=== PATIENT | male | born 1980 | race Hispanic/Latino ===

== ENCOUNTER 2016-04-18 12:37 | Emergency (ER) | payer OTHER ==
[~2016-04-18] VITALS: Ht 185.4 cm; Wt 120.2 kg
--- NOTE | 2016-04-18 14:31 | ED UPPER/LOWER EXTREMITY COMPL ---
History of Present Illness General Chief Complaint: Plantar Puncture Wound Stated Complaint: LEFT FOOT PAIN Source: patient Exam Limitations: no limitations Vital Signs & Intake/Output Vital Signs & Intake/Output Vital Signs Date Time Temp Pulse Resp B/P Pulse O2 O2 Flow FiO2 Ox Delivery Rate 04/18 1637 85 18 130/82 95 Room Air 04/18 1446 96 04/18 1445 98.3 97 18 141/83 96 Room Air 04/18 1248 97.8 94 18 129/78 97 Room Air Allergies Coded Allergies: NO KNOWN ALLERGIES (08/01/11) Triage Note: RECEIVED 35 YO MALE C/O RIGHT FOOT PAIN (TOP OF ANKLE) X ONE DAY AND INTERMITTENT LEFT UPPER CHEST PAIN X ONE DAY. PT HAD UMBILLICAL HERNIA REPAIR SURGURY LAST TUESDAY. PT HAS HX OF GOUT. PT DENIES INJURY/TRAUMA TO FOOT. PAIN WORSENING. Triage Nurses Notes Reviewed? yes Onset: Gradual Duration: constant Timing: recent history Severity: moderate Severity Numbers: 5 HPI: Patient is a 35-year-old male who presents emergency room with a one-day history of gradual onset of left-sided top of the foot pain and swelling. Patient is 11 days status post umbilical hernia repair performed at [facility]. Patient denies any mechanism of injury however states that ambulation makes worse. Denies any chest pain, hemoptysis cough arm pain and jaw pain abdominal pain or calf pain. Denies any paresthesia or numbness of the foot. Denies any discoloration of skin redness or warmth. Past History Travel History Traveled to [place] past 21 day No Medical History Any Pertinent Medical History? 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 No Review of Systems Review of Systems Constitutional: Reports: no symptoms. EENTM: Reports: no symptoms. Respiratory: Reports: no symptoms. Cardiovascular: Reports: no symptoms. Gastrointestinal/Abdominal: Reports: no symptoms. Genitourinary: Reports: no symptoms. Musculoskeletal: Reports: see HPI. Skin: Reports: no symptoms. Neurological/Psychological: Reports: no symptoms. Hematologic/Endocrine: Reports: no symptoms. Immunological: Reports: no symptoms. All Other Systems: Reviewed and Negative Physical Exam Physical Exam General Appearance: no apparent distress, alert, comfortable Hip Left: normal range of motion, normal inspection Hip Right: normal range of motion, normal inspection Knee Left: normal range of motion, normal inspection Knee Right: normal range of motion, normal inspection Foot Left: bone tenderness Foot Right: normal inspection, normal range of motion Neurologic/Tendon: normal sensation, normal motor functions, normal tendon functions, responds to pain, no evidence tendon injury, no pulse deficit Skin: intact, normal color, warm/dry Comments: Well-developed well-nourished no apparent distress. HEENT: Atraumatic, extraocular motion intact Neck: Supple, no lymphadenopathy Back: Nontender Respiratory: No respiratory distress Neuro: Alert and oriented x3 Psych: Mood affect normal, normal memory normal judgment. Diagram Feet Top 1) Localized swelling noted with moderate point tenderness, no erythema no warmth no redness Sensation intact Capillary refill intact pedal pulse +2 Progress Differential Diagnosis: arterial insufficiency, compartment syndrome, contusion, dislocation, DVT, fracture, gout, septic arthritis, sprain, tendon injury Plan of Care: Orders Procedure Date/time Status EKG 04/18 1251 Active Patient denies any mechanism of injury and due to results of x-rays I discussed patient and x-ray results with water pollution control inspector Dr. Leos who advised patient to be nonweightbearing and to have conservative treatment of ice and ibuprofen and to follow up in office next week. Patient was offered crutches and instructed on nonweightbearing status patient was offered ibuprofen in the emergency room and declined No concern at this time of DVT or infectious process. Patient was given copies of x-ray Upon discharge patient looks well no apparent distress and will comply discharge instructions and had no questions Due to the radiology x-ray dictation of MARAL'S infarct patient was reexamined and had minimal tenderness to the second metatarsal head Patient's most tenderness was to the mid aspect of patient's tarsals as dictated in diagram (DONNA FOURNIER) Diagnostic Imaging: Viewed by Me: Radiology Read. Radiology Impression: no fracture Comments: PATIENT: RICKEY HASTINGS PRESENT AGE: 35 PATIENT ACCOUNT NO: [id number] : 79 LOCATION: [facility] ORDERING PHYSICIAN: DONNA CONNER SERVICE DATE: 04/18/16 EXAM TYPE: RAD - XRY-FOOT COMPLETE, LEFT EXAMINATION: XR FOOT, LEFT CLINICAL INFORMATION: Dorsal foot pain and swelling. COMPARISON: None TECHNIQUE: AP, lateral, and oblique views of the left foot. FINDINGS: No fracture or dislocation. Bone mineralization is within normal limits. Slight hypertrophic changes at the first MTP joint. No periosteal reaction along the diaphyses of the metatarsals. On the oblique projection, there is equivocal flattening and subcortical sclerosis at the second metatarsal head. No radiodense foreign body. IMPRESSION: 1. No acute fracture. 2. On a single projection, there is equivocal flattening and subcortical sclerosis at the second metatarsal head. This could represent a normal variant or possibly very early changes of Freiberg's infraction the correct clinical setting. Consider radiographic or MR follow-up as clinically appropriate. PATIENT: RICKEY HASTINGS PRESENT AGE: 35 PATIENT ACCOUNT NO: [id number] : 79 LOCATION: [facility] ORDERING PHYSICIAN: DONNA CONNER SERVICE DATE: 04/18/16 EXAM TYPE: US - US-UNILATERAL VENOUS DOPPLER EXAMINATION: US TRIPLEX LOWER EXTREMITY, LEFT CLINICAL INFORMATION: Left foot pain and swelling. Evaluate for deep vein thrombosis. COMPARISON: None. TECHNIQUE: Color-flow triplex imaging with spectral analysis and compression Doppler were performed on the left lower extremity. FINDINGS: The left common femoral vein is compressible and exhibits a normal phasic waveform; this suggests that the iliac veins are widely patent above. Within the proximal thigh, the visualized profunda femoris vein is patent and the examined greater saphenous vein and saphenofemoral junction are normal. Superficial femoral vein is patent in the proximal, mid and distal thigh. Popliteal vein appears normal to the level of the trifurcation, and the visualized calf veins are normal. Incidentally noted is a small 1.3 x 0.6 x 1.3 cm popliteal cyst. IMPRESSION: No evidence of deep vein thrombosis in the left lower extremity. Departure Departure Disposition: HOME OR SELF CARE Condition: Stable Clinical Impression Primary Impression: Right foot pain Referrals: SHELBY BROWN MD (PCP/Family) CRISSY LEOS DPM Additional Instructions: As discussed begin using crutches until YOU can walk without pain. Begin icing the area directly for pain and inflammation 20 minutes on 2 hours off. Begin elevating THE FOOT for swelling. Begin using the Gregor wrap for swelling. Tomorrow please call water pollution control inspector Dr. Leos to make an appointment to be seen for further evaluation treatment. If symptoms worsen return to emergency room Departure Forms: Customer Survey General Discharge Information
--- NOTE | 2016-04-18 15:24 | RADIOLOGY REPORT ---
EXAMINATION: XR FOOT, LEFT CLINICAL INFORMATION: Dorsal foot pain and swelling. COMPARISON: None TECHNIQUE: AP, lateral, and oblique views of the left foot. FINDINGS: No fracture or dislocation. Bone mineralization is within normal limits. Slight hypertrophic changes at the first MTP joint. No periosteal reaction along the diaphyses of the metatarsals. On the oblique projection, there is equivocal flattening and subcortical sclerosis at the second metatarsal head. No radiodense foreign body. IMPRESSION: 1. No acute fracture. 2. On a single projection, there is equivocal flattening and subcortical sclerosis at the second metatarsal head. This could represent a normal variant or possibly very early changes of Freiberg's infraction the correct clinical setting. Consider radiographic or MR follow-up as clinically appropriate.
--- NOTE | 2016-04-18 15:46 | ULTRASOUND REPORT ---
EXAMINATION: US TRIPLEX LOWER EXTREMITY, LEFT CLINICAL INFORMATION: Left foot pain and swelling. Evaluate for deep vein thrombosis. COMPARISON: None. TECHNIQUE: Color-flow triplex imaging with spectral analysis and compression Doppler were performed on the left lower extremity. FINDINGS: The left common femoral vein is compressible and exhibits a normal phasic waveform; this suggests that the iliac veins are widely patent above. Within the proximal thigh, the visualized profunda femoris vein is patent and the examined greater saphenous vein and saphenofemoral junction are normal. Superficial femoral vein is patent in the proximal, mid and distal thigh. Popliteal vein appears normal to the level of the trifurcation, and the visualized calf veins are normal. Incidentally noted is a small 1.3 x 0.6 x 1.3 cm popliteal cyst. IMPRESSION: No evidence of deep vein thrombosis in the left lower extremity.
[2016-04-18 16:37] VITALS: BP 130/82
== END 2016-04-18 16:41 ==
LOC: ERH 12:37
DX: M79.671 Pain in right foot (principal)
CPT/HCPCS: 73630-LT; 93005; 93010

== ENCOUNTER 2016-07-17 00:07 | Emergency (ER) | payer OTHER ==
[~2016-07-17] VITALS: Ht 185.4 cm; Wt 123.8 kg
--- NOTE | 2016-07-17 00:17 | ED CARDIAC/CP/PALPITATIONS ---
History of Present Illness General Chief Complaint: Chest Pain Stated Complaint: CHEST PAIN ? ANXIETY Source: patient, family Exam Limitations: no limitations Vital Signs & Intake/Output Vital Signs & Intake/Output Vital Signs Date Time Temp Pulse Resp B/P Pulse O2 O2 Flow FiO2 Ox Delivery Rate 07/17 0031 98 Room Air 07/17 0022 96.1 88 20 140/84 98 Room Air Allergies Coded Allergies: NO KNOWN ALLERGIES (08/01/11) Triage Nurses Notes Reviewed? yes Onset: Gradual Duration: week(s):, waxing and waning Timing: recent history Location: central Radiation: no radiation Activities at Onset: "just when I was going to sleep" Modifying Factors: Improves With: rest. HPI: 36 yo gentleman h/o gerd, in prior good health presents with several weeks of intermittent hand numbness, anxiety attacks, chest pressure. He notes a similar episode tonight for the past 3 hours and presents to the ED for further care. He notes that he feels better at present. He has had similar episodes over the past several weeks. "It always gets better when I shake it off." He is otherwise well. Past History Medical History Any Pertinent Medical History? 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 No Review of Systems Review of Systems Constitutional: Reports: no symptoms. EENTM: Reports: no symptoms. Respiratory: Reports: no symptoms. Cardiovascular: Reports: no symptoms. GI: Reports: no symptoms. Genitourinary: Reports: no symptoms. Musculoskeletal: Reports: no symptoms. Skin: Reports: no symptoms. Neurological/Psychological: Reports: no symptoms. Hematologic/Endocrine: Reports: no symptoms. Immunologic/Allergic: Reports: no symptoms. All Other Systems: Reviewed and Negative Physical Exam Physical Exam General Appearance: well developed/nourished, anxious Head: atraumatic, normal appearance Eyes: Bilateral: normal appearance. Ears, Nose, Throat: normal pharynx, normal ENT inspection Neck: normal inspection, supple, full range of motion Respiratory: normal breath sounds, chest non-tender, no respiratory distress, quiet respiration, lungs clear Cardiovascular: regular rate/rhythm Gastrointestinal: normal bowel sounds, soft, non-tender, no organomegaly Back: normal inspection, normal range of motion Extremities: normal inspection Neurologic/Psych: no motor/sensory deficits, awake, alert, oriented x 3 Skin: intact, normal color, warm/dry Core Measures ACS in differential dx? No Severe Sepsis Present: No Septic Shock Present: No Progress Differential Diagnosis: AMI, anxiety vs paresthesia vs other. Plan of Care: Orders Procedure Date/time Status TROPONIN LEVEL 07/17 14 Complete D-DIMER 07/17 14 Complete COMPREHENSIVE METABOLIC PANEL 07/17 14 Complete CBC WITHOUT DIFFERENTIAL 07/17 14 Complete EKG 07/17 9 Active Laboratory Tests 07/17/16 0027: Anion Gap 10, Estimated GFR > 60, BUN/Creatinine Ratio 18.0, Glucose 105 H, Calcium 9.7, Total Bilirubin 0.3, AST 26, ALT 69, Alkaline Phosphatase 60, Troponin I < 0.01, Total Protein 7.0, Albumin 4.4, Globulin 2.6, Albumin/ Globulin Ratio 1.7, D-Dimer < 200, CBC w Diff NO MAN DIFF REQ, RBC 5.10, MCV 90.5, MCH 30.9, RDW 13.6, MPV 8.6, Gran % 38.2 L, Lymphocytes % 47.3, Monocytes % 9.0, Eosinophils % 4.9, Basophils % 0.6, Absolute Granulocytes 3.1, Absolute Lymphocytes 3.9 H, Absolute Monocytes 0.7 H, Absolute Eosinophils 0.4, Absolute Basophils 0.1, PUBS MCHC 34.1 Initial ED EKG: normal axis, normal intervals, normal p-waves, normal QRS complex, normal sinus rhythm Departure Departure Disposition: HOME OR SELF CARE Condition: Stable Clinical Impression Primary Impression: Chest pain Secondary Impressions: Anxiety, Numbness and tingling Referrals: SHELBY BROWN MD (PCP/Family) Departure Forms: Customer Survey General Discharge Information Comments 07/17/16, 1:26am... pt feels well throughout ED stay... labs/ekg benign... discussed at length... pt will try his xanax (he hasn't been taking it) and follow up with his pmd. Critical Care Note Critical Care Note Critical Care Time: non-applicable
[2016-07-17 00:40] LABS: ABSOLUTE BASOPHIL COUNT 0.1 /CUMM (0.0-0.2); ABSOLUTE EOSINOPHIL COUNT 0.4 /CUMM (0.0-0.7); ABSOLUTE GRANULOCYTE CT 3.1 /CUMM (1.4-6.5); ABSOLUTE LYMPH COUNT 3.9 /CUMM (1.2-3.4); ABSOLUTE MONOCYTE COUNT 0.7 /CUMM (0.10-0.60); BASOPHIL % 0.6 % (0.0-2.0); EOSINOPHIL % 4.9 % (0-5); GRANULOCYTE % 38.2 % (42.2-75.2); HEMATOCRIT 46.2 % (42-52); MEAN CORPUSCULAR HGB 30.9 PG (27.0-31.0); MEAN CORPUSCULAR HGB CONC 34.1 G/DL (33.0-37.0); MEAN CORPUSCULAR VOLUME 90.5 FL (80.0-94.0); MEAN PLATELET VOLUME 8.6 FL (7.4-10.4); PLATELET COUNT 213 /CUMM (130-400); RBC DISTRIBUTION WIDTH 13.6 % (11.5-14.5); WHITE BLOOD CELL COUNT 8.2 /CUMM (4.8-10.8)
[2016-07-17 01:28] VITALS: BP 146/86
== END 2016-07-17 01:30 ==
LOC: ERH 00:07
PROVIDERS: Pediatrics
DX: R07.9 Chest pain, unspecified (principal); F41.9 Anxiety disorder, unspecified; R20.0 Anesthesia of skin
CPT/HCPCS: 93005; 93010